=== PATIENT | female | born 1960 | race African-American/Black ===

== ENCOUNTER 2021-10-02 07:14 | Emergency (ER) | payer MEDICARE, OTHER ==
[~2021-10-02] VITALS: Ht 162.6 cm; Wt 72.0 kg
[2021-10-02 07:21] VITALS: BP 103/79
[2021-10-02] MEDS ORDERED: diphenhydrAMINE HCL 25 MG CAPSULE PO ONE (07:30)
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
[2021-10-02] MEDS ORDERED: CEPHALEXIN 250 MG CAPSULE PO ONE (08:30)
[2021-10-02] MEDS ORDERED: CEPH500C PO (08:35)
[2021-10-02] MEDS ORDERED: HYDR25TA PO (08:35)
[2021-10-02] MEDS: hydrOXYzine HCL 25 MG TABLET PO PRN ×2 (08:42→08:43)
== END 2021-10-02 08:43 | disposition home or self-care (01) ==
LOC: ER 07:14
DX: Z00.00 Encounter for general adult medical examination without abnormal findings (principal); L29.9 Pruritus, unspecified; Z88.5 Allergy status to narcotic agent
CPT/HCPCS: 99283-25